=== PATIENT | male | born 2000 | race Caucasian/White ===

== ENCOUNTER 2025-01-15 06:18 | Day surgery (SDC) | payer BC, SELFPAY ==
[2025-01-15] VITALS (12 sets, daily range): BP systolic 121–146; BP diastolic 65–98; BMI 23.6
[2025-01-15] MEDS: NORMOSOL-R/PLASMALYTE-A 1000 IV (06:57)
== END 2025-01-15 11:20 | disposition home or self-care (01) ==
LOC: SDS 06:18
PROVIDERS: ATTENDING PHYSICIAN Otolaryngology
DX: J34.2 Deviated nasal septum (principal); J34.3 Hypertrophy of nasal turbinates
CPT/HCPCS: 30520